=== PATIENT | male | born 1985 | race American Indian/Alaskan Native ===

== ENCOUNTER 2019-08-20 19:15 | Emergency (ER) | payer OTHER ==
--- NOTE | 2019-08-20 20:32 | Emergency Department Report ---
ED Shortness of Breath HPI - General Chief Complaint: Dyspnea/Respdistress Stated Complaint: TAYLA Time Seen by Provider: 08/20/19 19:40 Source: patient, EMS Mode of arrival: Stretcher Limitations: No Limitations - History of Present Illness Initial Comments: Mr. Dupree is a 34 yo male with hx of HTN who presents with cough and shortness of breath for 2 weeks. He received a COVID [address] [facility] yesterday. Result is pending. No sick contacts. He has been working for home. However he has shoppted at retail centers. He has productive cough with sputum. No fever. He has been treating with [id number] flu medication. MD Complaint: shortness of breath, cough -: week(s) (2) Severity: mild Consistency: constant Improves With: nothing Worsens With: nothing Known History Of: other (History of hypertension otherwise in good health) Context: recent URI - Related Data Previous Rx's Medication Instructions Recorded Last Taken Type Azithromycin [Zithromax TAB] 250 mg PO QDAY 4 Days #4 tablet 08/20/19 Unknown Rx Hydrocodone/Chlorphen P-Stirex 5 ml PO BID #115 ml 08/20/19 Unknown Rx [Tussionex Pennkinetic Susp] Allergies Allergy/AdvReac Type Severity Reaction Status Date / Time No Known Allergies Allergy Unverified 08/20/19 20:21 ED Review of Systems ROS: Stated complaint: TAYLA Other details as noted in HPI Constitutional: malaise. denies: chills, fever Respiratory: cough, shortness of breath Cardiovascular: denies: chest pain ED Past Medical Hx - Past Medical History Previous Medical History?: Yes Hx Hypertension: Yes - Surgical History Past Surgical History?: No - Social History Smoking Status: Never Smoker Substance Use Type: Alcohol - Medications Home Medications: Home Medications Medication Instructions Recorded Confirmed Last Taken Type Azithromycin [Zithromax TAB] 250 mg PO QDAY 4 Days #4 tablet 08/20/19 Unknown Rx Hydrocodone/Chlorphen P-Stirex 5 ml PO BID #115 ml 08/20/19 Unknown Rx [Tussionex Pennkinetic Susp] ED Physical Exam - General Limitations: No Limitations General appearance: alert, in no apparent distress - Head Head exam: Present: atraumatic, normocephalic - Eye Eye exam: Present: normal appearance - ENT ENT exam: Present: mucous membranes moist - Neck Neck exam: Present: normal inspection, full ROM - Respiratory Respiratory exam: Present: normal lung sounds bilaterally. Absent: respiratory distress, wheezes, rales, rhonchi - Cardiovascular Cardiovascular Exam: Present: regular rate, normal rhythm, normal heart sounds. Absent: systolic murmur, diastolic murmur, rubs, gallop - GI/Abdominal GI/Abdominal exam: Present: soft, normal bowel sounds. Absent: distended, tenderness, guarding, rebound - Rectal Rectal exam: Present: deferred - Extremities Exam Extremities exam: Present: normal inspection - Back Exam Back exam: Present: normal inspection - Neurological Exam Neurological exam: Present: alert, oriented X3 - Psychiatric Psychiatric exam: Present: normal affect, normal mood - Skin Skin exam: Present: warm, dry, intact, normal color. Absent: rash ED Course Vital Signs 08/20/19 19:40 Temperature 97.8 F Pulse Rate 88 Respiratory 20 Rate Blood Pressure 147/98 Blood Pressure 147/98 [Left] O2 Sat by Pulse 99 Oximetry ED Medical Decision Making - Radiology Data Radiology results: report reviewed, image reviewed Chest radiograph 1 view: My personal interpretation, multifocal infiltrate with bibasilar predominance - Medical Decision Making Ms. Avila presents with multifocal pneumonia. Suspect COVID 19 infection. Prescribed azithromycin and Tussionex. He understands return precautions. He understands to self isolate for the next 14 days. Critical care attestation.: If time is entered above; I have spent that time in minutes in the direct care of this critically ill patient, excluding procedure time. ED Disposition Clinical Impression: Suspected COVID-19 virus infection, Pneumonia Disposition: DC- TO HOME OR SELFCARE Is pt being admited?: No Does the pt Need Aspirin: No Condition: Stable Instructions: COVID-19 Additional Instructions: Please self isolate self quarantine for the next 14 days. Prescriptions: Hydrocodone/Chlorphen P-Stirex [Tussionex Pennkinetic Susp] 5 ml PO BID #115 ml Azithromycin [Zithromax TAB] 250 mg PO QDAY 4 Days #4 tablet Referrals: PRIMARY CARE,MD [Primary Care Provider] - as needed
--- NOTE | 2019-08-20 21:04 | XRay Report ---
CHEST 1 VIEW 08/20/2019 8:41 PM INDICATION / CLINICAL INFORMATION: dyspnea. COMPARISON: None available. FINDINGS: SUPPORT DEVICES: None. HEART / MEDIASTINUM: No significant abnormality. LUNGS / PLEURA: Lung volumes are low with bibasilar pulmonary opacities. No pneumothorax. ADDITIONAL FINDINGS: No significant additional findings. IMPRESSION: 1. Low lung volumes with bibasilar pulmonary opacities that could represent subsegmental atelectasis or parenchymal opacification suggestive of developing infectious process. Signer Name: Timoteo Garcia MD Signed: 08/20/2019 8:59 PM Workstation Name: [id number]
[2019-08-20] MEDS ORDERED: AZITHROMYCIN 250 MG TAB PO ONE (21:19)
[2019-08-20 21:35] VITALS: BP 137/86
== END 2019-08-20 21:50 | disposition home or self-care (01) ==
LOC: ED 19:15
DX: J18.9 Pneumonia, unspecified organism (principal); Z20.828 Contact with and (suspected) exposure to other viral communicable diseases; Z79.899 Other long term (current) drug therapy
CPT/HCPCS: 71045; 99283